=== PATIENT | male | born 1995 | race Two or more races ===

== ENCOUNTER 2022-10-31 20:09 | Emergency (ER) | payer OTHER ==
[~2022-10-31] VITALS: Ht 175.3 cm; Wt 74.8 kg
== END 2022-11-01 01:30 | disposition home or self-care (01) ==
LOC: ER 20:09
DX: B34.9 Viral infection, unspecified (principal); Z88.0 Allergy status to penicillin; Z20.822 Contact with and (suspected) exposure to COVID-19